=== PATIENT | female | born 1970 | race Caucasian/White ===

== ENCOUNTER → 2020-07-30 02:46 | Outpatient (CLI) | payer BC, SELFPAY ==
[2020-07-30 23:32] LABS: SARS-CoV-2 RNA PCR Negative
== END ==
PROVIDERS: Visit Provider Internal Medicine Critical Care Medicine
DX: R68.89 Other general symptoms and signs (principal); Z20.822 Contact with and (suspected) exposure to COVID-19
CPT/HCPCS: C9803; U0003; U0005

== ENCOUNTER 2020-08-14 08:57 | Outpatient (CLI) | payer BC, SELFPAY ==
--- NOTE | 2020-09-09 14:29 | WPDSLEEPSTUD ---
Sleep Study Date of Study: 08/14/20 Ordering Provider: Angélica Grigsby, [facility]- Interpreting Physician: January Calderón MD Sleep Study Type: Polysomnogram Height: 1.65 m Weight: 107.955 kg Body Mass Index: 39.6 Neck Circumference (inches): 14 [place]: 13 Reason for Sleep Study hypersomnolence, non restorative sleep Sleep History Elissa Arana is a 49 year old female with a history of anxiety. She sometimes takes OTC sleeping pills. She occasionally awakens from sleep feeling short of breath. She does not awaken at night with heartburn, belching, or coughing. She occasionally snores, and occasionally this is loud enough that others complain. She occasionally has trouble sleeping with a cold. She occasionally wakes up gasping for breath at night. She does not have breathing problems at night noted by others. She occasionally sweats excessively at night which she attributes to menopause. Her heart pounding irregularly at night. She rarely falls asleep during the day, never involuntarily but does rarely fall asleep while driving. She does not fall asleep while exerting physical effort. She does not have loss of muscle tone was strong emotion. She does not have daytime difficulties due to excessive sleepiness. She does not feel paralyzed on waking or falling asleep. She does not have vivid dreamlike scenes upon awakening or falling asleep. She does not feel afraid to go to sleep. She frequently has nightmares. She frequently remembers her dreams. She occasionally has racing thoughts which is attributed to losing a child in 2019. She frequently feels sad or depressed. She occasionally has anxiety. She rarely has muscular tension. She does not notice parts of her body jerking. She does not kick at night. She occasionally has crawling and aching feelings in her legs which she attributes to arthritis. She does not have leg pain at night. She does not have morning jaw pain. However her dentist says it she may clench her teeth. She is not bothered by pain during the day and is not awakened by pain at night. She rarely wakes up feeling stiff in the morning with sore achy muscles. She occasionally wakes up with pain in the neck and spine. She has had a back injury. She takes sedatives at times. She has short-term memory problems and fatigue as well as depression. She has insomnia. She takes antacids regularly. she never awakens feeling refreshed. She has gained 20 lb in the last year but previously lost 35 lb. Normal bedtime is 11:00 p.m. taking 30 minutes to an hour to fall asleep. She wakes twice at night. She stays awake for 5-10 minutes. She tries to get back to sleep and not think about things. She wakes the patient 5:30 a.m.. On the weekends she goes to bed later, midnight and wakes between 8:00 a.m. and 9:00 a.m.. She does not take naps in the afternoon or evening. A short nap is not refreshing. She is usually drowsy in the morning for 1 hour or longer. She feels better in the afternoon compared other times of day. Habits: Never smoked tobacco. Caffeine 2 cups of coffee a day. No alcohol or recreational drugs. 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 anxiety Noreen the statin 5 mg daily Sleep Procedure This test was performed using the [employer] (V3D) channel
[2020-09-09 14:41] VITALS: BMI 39.6
== END 2020-08-20 09:50 | disposition home or self-care (01) ==
LOC: ANHCSM 09:01
PROVIDERS: Visit Provider Nurse Practitioner Family
DX: G47.30 Sleep apnea, unspecified (principal); G47.33 Obstructive sleep apnea (adult) (pediatric)
CPT/HCPCS: 95810

== ENCOUNTER 2022-05-11 09:33 | Emergency (ER) | payer BC, SELFPAY ==
[2022-05-11 09:40] VITALS: BP 131/72; PULSE 86; RESP 16; TEMP 36.3; O2SAT 100
--- NOTE | 2022-05-11 09:43 | ED.URI ---
HPI - URI/Sore Throat General Chief Complaint: Upper Respiratory Infection Stated Complaint: Sore Throat/Sinus Time Seen by Provider: 05/11/22 09:43 Source: patient Mode of arrival: ambulatory Limitations: no limitations History of Present Illness HPI Narrative: Patient is a 51 y/o Female that presents with one week of sore throat, congestion, sinus drainage, cough, sinus congestion. Along with 3 weeks of a headache. Patient had COVID test sent on at [facility] and still does not have result. Patient has tried taking DayQuil, NyQuil, Sudafed, and takes a daily allergy medication. Mild to no relief. Related Data Home Medications Medication Instructions Recorded Confirmed escitalopram oxalate 10 mg tablet 10 mg PO DAILY 05/11/22 05/11/22 estradiol 1 mg tablet 1 mg PO DAILY 05/11/22 05/11/22 phentermine 37.5 mg tablet 37.5 mg PO DAILY 05/11/22 05/11/22 rosuvastatin 5 mg tablet 5 mg PO DAILY 05/11/22 05/11/22 Allergies Allergy/AdvReac Type Severity Reaction Status Date / Time No Known Allergies Allergy Verified 05/11/22 09:45 Review of Systems Review of Systems: All systems reviewed & are unremarkable except as noted in HPI and below Constitutional: Constitutional: Denies body ache(s), Denies fever(s), Denies malaise and Denies weakness Eyes: Eyes: Denies loss of vision ENT: Denies otalgia, Reports headache(s), Reports nasal congestion, Reports nasal discharge, Reports post nasal drip, Denies sinus pain and Reports sore throat Cardiovascular: Cardiovascular: Denies chest pain, Denies irregular heart rhythm and Denies dyspnea Respiratory: Respiratory: Reports cough and Denies dyspnea Gastrointestinal: Gastrointestinal: Denies abdominal pain, Denies melena, Denies hematochezia, Denies diarrhea, Denies nausea and Denies vomiting Musculoskeletal: Musculoskeletal: Denies back pain, Denies myalgias and Denies arthralgias Integumentary/Breasts: Skin/Breast: Denies pruritus and Denies rash Neurologic: Denies headache(s), Denies loss of vision and Denies weakness Psychiatric: Psychiatric: Reports no additional psychiatric complaints PMFSH Past Medical History Medical History (Updated 05/11/22 @ 09:58 by Chaya Hendrix, [employer] TECHNICIAN) Anxiety Depression GERD (gastroesophageal reflux disease) Hyperlipidemia Hypersomnolence Seasonal allergies Social History Social History (Updated 09/09/20 @ 14:54 by January Calderón MD) Smoking status: Never smoker Alcohol intake: never Substance use: never Living arrangements: with family Additional living arrangements comments: Occupation/Education: occupation 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 There is no relevant family history pertinent to the presenting complaint. Exam Const: General: cooperative, healthy appearing, comfortable, no acute distress and well nourished Nutritional Appearance: well nourished Orientation/consciousness: patient oriented x3 Limitations: no limitations HENMT: Head: normal to inspection, normocephalic and atraumatic Ears: hearing grossly normal bilaterally, external ears normal and TM's normal bilaterally Face/Nose/Sinus: Normal external nose present, Normal nares present, Abnormal mucous membranes and turbinates present erythematous bilateral and diffuse, normal facial exam, sinuses nontender, face symmetric and No Facial tenderness on exam of face and sinuses Face and sinus: normal facial exam, sinuses nontender and face symmetric Mouth: Yes Normal oral and palatal mucosa present, Yes lip normal, Yes tongue normal, Yes oropharynx normal and Yes moist mucous membranes Teeth and gingiva: dentition normal Throat: posterior oropharynx normal, tonsils normal and uvula midline Eyes: General: appearance normal, both eyes and all related structures Alignment and Position: alignment normal and position nor
[2022-05-11 09:47] VITALS: BP 131/72; PULSE 86; RESP 16; TEMP 36.3; O2SAT 100
== END 2022-05-11 10:03 | disposition home or self-care (01) ==
PROVIDERS: Emergency Provider Nurse Practitioner Family; PCP Nurse Practitioner Family
DX: J06.9 Acute upper respiratory infection, unspecified (principal); E78.5 Hyperlipidemia, unspecified
CPT/HCPCS: 99213; G0463

== ENCOUNTER 2023-02-09 08:55 | Emergency (ER) | payer BC, SELFPAY ==
[2023-02-09 09:09] VITALS: BP 122/51; PULSE 119; RESP 16; TEMP 37.1; O2SAT 99
--- NOTE | 2023-02-09 09:24 | ED.URI ---
HPI - URI/Sore Throat General Chief Complaint: Upper Respiratory Infection Stated Complaint: Sore Throat/Sinus Time Seen by Provider: 02/09/23 09:26 Source: patient and RN notes reviewed Mode of arrival: ambulatory Limitations: no limitations History of Present Illness HPI Narrative: 52-year-old female presented for complaint of headache, body aches, sinus pressure/congestion, cough, fever/chills. onset yesterday. Patient returned from a cruise 2 days prior to symptom onset. Denies sob, wheezing, n/v/d. MD elicited complaint: cough Related Data Home Medications Medication Instructions Recorded Confirmed escitalopram oxalate 10 mg tablet 10 mg PO DAILY 05/11/22 02/09/23 estradiol 1 mg tablet 1 mg PO DAILY 05/11/22 02/09/23 phentermine 37.5 mg tablet 37.5 mg PO DAILY 05/11/22 02/09/23 rosuvastatin 5 mg tablet 5 mg PO DAILY 05/11/22 02/09/23 cholecalciferol (vitamin D3) 50 50 mcg PO DAILY 02/09/23 02/09/23 mcg (2,000 unit) capsule levothyroxine 50 mcg tablet mcg 02/09/23 omeprazole 20 mg capsule,delayed 20 mg PO DAILY 02/09/23 02/09/23 release Allergies Allergy/AdvReac Type Severity Reaction Status Date / Time No Known Allergies Allergy Verified 02/09/23 09:12 Review of Systems Review of Systems: CONSTITUTIONAL: Endorses malaise, chills, sweats, fever EYES: Denies visual changes, redness, or discharge ENT: Reports rhinorrhea, congestion, otalgia, sore throat CARDIOVASCULAR: Denies chest pain, palpitations, edema RESPIRATORY: Reports cough, post nasal drainage. Denies dyspnea GASTROINTESTINAL: Denies abdominal pain, nausea, vomiting, diarrhea SKIN: Denies rash or itching MUSCULOSKELETAL: Endorses myalgia NEUROLOGIC: Reports headache PMFSH Past Medical History Medical History (Updated 02/09/23 @ 09:28 by Riya Patrick APRN) Anxiety Depression GERD (gastroesophageal reflux disease) Hyperlipidemia Hypersomnolence Seasonal allergies Social History Social History (Updated 09/09/20 @ 14:54 by January Calderón MD) Smoking status: Never smoker Alcohol intake: never Substance use: never Living arrangements: with family Additional living arrangements comments: Occupation/Education: occupation 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 EYES: conjunctivae clear ENT: Mucous membranes moist. TM pearly sow with dull light reflex bilaterally; no tragal tenderness. Oropharynx erythematous without lesions or exudate, no drooling, no hoarseness, no trismus, uvula midline. No tripod positioning, muffled voice, soft palate or pharyngeal wall bulging NECK: Supple. No lymphadenopathy CHEST: Clear to auscultation, breath sounds equal. No wheezing, rhonchi, rales, or stridor. No respiratory distress, speaks in full sentences. HEART: Regular rate and rhythm. No murmur heard. SKIN: Warm, dry, no rash. NEURO: Alert and oriented x3. PSYCH: Normal mood and affect Course Course Emergency Course: Patient is aware of diagnosis, understands and agrees to treatment plan. Anticipatory guidance given. Patient agrees to follow-up as directed and is aware of reasons to seek care at the emergency department. Portions of this record may have been created with voice recognition software Level of Care: Express Care Visit Vital Signs Vital signs: Vital Signs Temperature 98.8 F 02/09/23 09:09 Pulse Rate 119 H 02/09/23 09:09 Respiratory Rate 16 02/09/23 09:09 Blood Pressure 122/51 L 02/09/23 09:09 Pulse Oximetry 99 02/09/23 09:09 Oxygen Delivery Room Air 02/09/23 09:09 Temperature 98.8 F 02/09/23 09:09 Pulse Rate 119 H 02/09/23 09:09 Respiratory Rate 16 02/09/23 09:09 Blood Pressure 122/51 L 02/09/23 09:09 Pulse Oximetry 99 02/09/23 09:09 Oxygen Delivery Room Air 02/09/23 09:09 reviewed MDM - URI/Sore Throat MDM Narrative Medical decision making
== END 2023-02-09 09:37 | disposition home or self-care (01) ==
PROVIDERS: Emergency Provider Nurse Practitioner Family
DX: U07.1 COVID-19 (principal); E78.5 Hyperlipidemia, unspecified; Z79.899 Other long term (current) drug therapy
CPT/HCPCS: 87426; 87804; 99213; C9803; G0463